=== PATIENT | female | born 1955 | race Caucasian/White ===

== ENCOUNTER → 2016-06-08 | Outpatient (CLI) | payer BC, MEDICARE ==
[~2016-06-08] MED LIST: BACLOFEN 10MG T10 MG PO; CEFTIN500 MG PO; CELEBREX 200MG200 MG PO; CLIMARA0.025 MG/2 TD; GABAPENTIN300 MG PO; HYDROCHLOROTHIA25 M1 PO; LIORESAL 10MG.10 MG PO; LISINOPRIL 5MG T5 MG PO; MAXALT10 MG PO; METOPROLOL50 MG PO; MORPHINE SULFAT15 M4 PO; MORPHINE SULFAT30 M3 PO; OMEPRAZOLE20 MG PO; POTASSIUM CHLO20 ME2 PO; REGLAN10 M2 PO; SIMVASTATIN40 MG PO; TOPAMAX25 MG PO; TOPIRAMATE 25MG25 MG PO
--- NOTE | 2016-06-08 13:33 | RADIOLOGY REPORT PS360 ---
KNEE-3 VIEWS-LT HISTORY: BILATERAL KNEE PAIN ORDERING PHYSICIAN: Kojo Garcia MD PATIENT AGE: 60 years COMPARISON: None FINDINGS: Moderate to severe osteoarthritic changes involving the medial compartment and patellofemoral joint with osteosclerosis, osteophyte formation, and decrease in the joint space. There is some subchondral lucency involving the medial femoral condyle and could be due to mild avascular necrosis. No fracture or dislocation. No lytic or blastic change. IMPRESSION: Moderate to severe osteoarthritis of the left knee with possible small area of avascular necrosis in the subchondral region of the medial femoral condyle
--- NOTE | 2016-06-08 13:34 | RADIOLOGY REPORT PS360 ---
KNEE-3 VIEWS-RT HISTORY: BILATERAL KNEE PAIN ORDERING PHYSICIAN: Kojo Garcia MD PATIENT AGE: 60 years COMPARISON: None FINDINGS: Severe osteoarthritic changes are present greater along the medial compartment and patellofemoral joint with moderate osteoarthritic change of the lateral compartment. Decrease in joint space with osseous sclerosis and osteophyte formation noted. No acute fracture or dislocation. Faint subchondral lucency involving the medial femoral condyle and could be related to developing avascular necrosis IMPRESSION: Severe osteoarthritic change as described above. 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
== END ==
LOC: RAD 12:33
DX: M25.562 Pain in left knee (principal); M25.561 Pain in right knee